=== PATIENT | male | born 1945 | race Caucasian/White ===

== ENCOUNTER 2018-08-16 09:08 | Emergency (ER) | payer MEDICARE ==
[2018-08-16 11:15] VITALS: BP 126/69
--- NOTE | 2018-08-16 11:35 | UC ---
Skin Complaint HPI - HPI Summary HPI Summary: 73 yo male noted red tender area along belt line this AM concern that it may be due to a tick bite no fever no myalgias - History of Current Complaint Chief Complaint: UCBiteInjury Time Seen by Provider: 08/16/18 11:20 Stated Complaint: TICK BITE Hx Obtained From: Patient Onset/Duration: Lasting Hours Skin Exposure Onset/Duration: Hours Ago Timing: Constant Onset Severity: Mild Current Severity: Mild Pain Intensity: 0 Pain Scale Used: 0-10 Numeric Location: Other - see image Character: Swelling, Pain Aggravating Factor(s): Nothing Alleviating Factor(s): Nothing Associated Signs & Symptoms: Positive: Tenderness. Negative: Nausea, Vomiting, Numbness, Thirst, Diaphoresis, Weakness, Pallor, Shivering, Difficulty Breathing , Fever, Chills, Cough, Wheezing, Chest Pain, Hoarseness, Throat Tightening, Rash, Abdominal Pain, Lightheadedness, Syncope, Drainage, Bruising, Red Streaks , Joint Swelling Related History: Insect Bite/Sting - ??? - Allergy/Home Medications Allergies/Adverse Reactions: Allergies Allergy/AdvReac Type Severity Reaction Status Date / Time cefprozil [From Cefzil] Allergy Unknown Verified 08/16/18 11:07 Reaction Details latex Allergy Blisters Verified 08/16/18 11:07 sulfamethoxazole Allergy Unknown Verified 08/16/18 11:07 [From Bactrim] Reaction Details trimethoprim [From Bactrim] Allergy Unknown Verified 08/16/18 11:07 Reaction Details brompheniramine AdvReac "I just Verified 08/16/18 11:07 [From Dimetapp couldn't (brompheniramine-PPA)] function after I took it." phenylpropanolamine AdvReac "I just Verified 08/16/18 11:07 [From Dimetapp couldn't (brompheniramine-PPA)] function after I took it." Home Medications: Home Medications Albuterol HFA INHALER* [Ventolin HFA Inhaler*] 2 puff INH Q6H PRN 08/16/18 [ History Confirmed 08/16/18] Lisinopril 40 mg PO DAILY 08/16/18 [History Confirmed 08/16/18] Mometasone 220 MCG MDI * [Asmanex 220 MCG MDI *] 2 puff INH BEDTIME 08/16/18 [ History Confirmed 08/16/18] Potassium Chlor TAB* [Klor Con ER TAB*] 40 meq PO BID 08/16/18 [History Confirmed 08/16/18] Pravastatin (NF) [Pravachol (NF)] 40 mg PO BEDTIME 08/16/18 [History Confirmed 08/16/18] Vitamin THERAPEUTIC TAB* [Theragran TAB*] 1 tab PO DAILY 08/16/18 [History Confirmed 08/16/18] amLODIPine TAB* [Norvasc 5 mg TAB*] 10 mg PO DAILY 08/16/18 [History Confirmed 08/16/18] PMH/Surg Hx/FS Hx/Imm Hx Previously Healthy: Yes Cardiovascular History: Hypertension Respiratory History: Asthma - Surgical History Surgical History: Yes Surgery Procedure, Year, and Place: Bilateral Ventral Herniorrhaphy, , ; Left Leg Vein Stripping, 1978, ; Vasectomy - Family History Known Family History: Positive: Hypertension - Social History Alcohol Use: Occasionally Substance Use Type: None Smoking Status (MU): Never Smoked Tobacco Review of Systems All Other Systems Reviewed And Are Negative: Yes Constitutional: Positive: Negative Skin: Positive: Negative Eyes: Positive: Negative ENT: Positive: Negative Respiratory: Positive: Negative Cardiovascular: Positive: Negative Gastrointestinal: Positive: Negative Genitourinary: Positive: Negative Motor: Positive: Negative Neurovascular: Positive: Negative Musculoskeletal: Positive: Negative Neurological: Positive: Negative Psychological: Positive: Negative Physical Exam Triage Information Reviewed: Yes Appearance: Well-Appearing, No Pain Distress, Well-Nourished Vital Signs: Initial Vital Signs Temp 98.1 F 08/16/18 11:05 Pulse 70 08/16/18 11:05 Resp 16 08/16/18 11:05 BP 126/69 08/16/18 11:05 Pulse Ox 99 08/16/18 11:05 Vital Signs Reviewed: Yes Eyes: Positive: Conjunctiva Clear ENT: Positive: Hearing grossly normal, Uvula midline. Negative: Nasal congestion, Nasal drainage, Tonsillar swelling, Tonsillar exudate Neck: Positive: Supple, Nontender, No Lymphadenopathy Respiratory: Positive: Lungs clear, Normal breath sounds, No respiratory distress, No accessory muscle use Cardiovascular: Positive: RRR, No Murmur Abdomen Description: Positive: Nontender, No Organomegaly. Negative: CVA Tenderness (R), CVA Tenderness (L) Musculoskeletal: Positive: ROM Intact, No Edema Neurological: Positive: Alert Psychological Exam: Normal Skin Exam: Other - see image Images Front/Back of Body, Lg (Moffat): 1 - red papule with 2-3 cm of surrounding erthyema, no fluctuance Course/Dx - Diagnoses Provider Diagnosis: Cellulitis, abdominal wall, Insect bite Discharge - Sign-Out/Discharge Documenting (check all that apply): Patient Departure All imaging exams completed and their final reports reviewed: Yes - Discharge Plan Condition: Stable Disposition: HOME Prescriptions: DOXYcycline CAP(*) [DOXYcycline 100MG CAP(*)] 100 mg PO BID #28 cap Patient Education Materials: Cellulitis (ED) Referrals: Lokesh Davenport MD [Primary Care Provider] - If Needed Additional Instructions: I suspect a cellulitis from an infected insect bite ( as opposed to lyme disease ) warm/soapy compresses to area for about 10 minutes 4x day until better if you notice a boil (abscess) that needs to be lanced please return If you note dramatic improvement within a few days you can stop the doxy after a week recheck for any concerns or new symptoms - Billing Disposition and Condition Condition: STABLE Disposition: Home
== END 2018-08-16 11:39 | disposition home or self-care (01) ==
LOC: UCCORT 09:08
DX: S30.861A Insect bite (nonvenomous) of abdominal wall, initial encounter (principal); W57.XXXA Bitten or stung by nonvenomous insect and other nonvenomous arthropods, initial encounter; Y92.9 Unspecified place or not applicable; L03.311 Cellulitis of abdominal wall; Z88.1 Allergy status to other antibiotic agents; Z88.2 Allergy status to sulfonamides; I10 Essential (primary) hypertension; J45.909 Unspecified asthma, uncomplicated
CPT/HCPCS: 99212; G0463